=== PATIENT | female | born 2000 | race Caucasian/White ===

== ENCOUNTER 2018-06-21 18:09 | Outpatient (CLI) | payer MEDICAID ==
[2018-06-21] MEDS: TERBUTALINE 1 MG/ML INJ SC ×2 (19:55→22:00)
[2018-06-21 20:42] LABS: ADD UMIC NO; UR ASCORBIC ACID NEGATIVE (NEGATIVE); UR BILIRUBIN (Dip) NEGATIVE (NEGATIVE); UR BLOOD (Dip) NEGATIVE (NEGATIVE); UR CLARITY CLEAR (CLEAR); UR COLOR STRAW (YELLOW); UR GLUCOSE (Dip) NEGATIVE (NEGATIVE); UR KETONES (Dip) NEGATIVE (NEGATIVE); UR LEUKOCYTE ESTERASE (Dip) NEGATIVE Leu/ul (NEGATIVE); UR NITRITE (Dip) NEGATIVE (NEGATIVE); UR SPECIFIC GRAVITY (Dip) 1.003 (1.003-1.030); UR TOTAL PROTEIN (Dip) NEGATIVE (NEGATIVE); UR UROBILINOGEN (Dip) NEGATIVE (NEGATIVE)
== END 2018-06-22 00:08 | disposition home or self-care (01) ==
LOC: OBT 18:09 → L-D 18:10
DX: O36.8120 Decreased fetal movements, second trimester, not applicable or unspecified (principal); O47.03 False labor before 37 completed weeks of gestation, third trimester; Z3A.27 27 weeks gestation of pregnancy
CPT/HCPCS: 76818; 81003

== ENCOUNTER 2018-09-21 09:02 | Inpatient (IN) | payer MEDICAID ==
[2018-09-21] MEDS: LACTATED RINGER'S 1,000 ML IV ×2 (09:17→17:34)
[2018-09-21] MEDS ORDERED: IBUPROFEN 600 MG TAB PO (09:30)
[2018-09-21] MEDS ORDERED: MISOPROSTOL 200 MCG TAB PR (09:30)
[2018-09-21] MEDS ORDERED: CARBOPROST 250 MCG INJ IM (09:30)
[2018-09-21] MEDS ORDERED: OXYTOCIN 30 UNITS/LR 500 ML IV ×2 (09:30)
[2018-09-21 10:08] LABS: ADD MAN DIFF? NO
[2018-09-21 10:11] LABS: BASOPHILS % 0.4 % (0.0-2.0); EOSINOPHILS % 0.2 % (0.0-7.0); HEMATOCRIT 35.7 % (37.0-47.0); HEMOGLOBIN 11.8 g/dl (12.0-16.0); LYMPHOCYTES # 2.2 10^3/ul (0.8-2.9); LYMPHOCYTES % 27.6 % (18.0-55.0); MEAN CORPUSCULAR HEMOGLOBIN 30.8 pg (29.0-33.0); MEAN CORPUSCULAR HGB CONC 33.1 g/dl (32.0-37.0); MEAN CORPUSCULAR VOLUME 93.2 fl (72.0-104.0); MEAN PLATELET VOLUME 10.6 fl (7.4-10.4); MONOCYTE # 0.7 10^3/ul (0.3-0.9); MONOCYTES % 8.5 % (0.0-13.0); NEUTROPHILS % 62.2 % (30.0-74.0); PLATELET COUNT 232 10^3/UL (140-415); RED BLOOD COUNT 3.83 10^6/ul (4.20-5.40)
[2018-09-21 10:31] LABS: INR 0.91; PROTIME 12.4 Sec (11.9-14.9)
[2018-09-21] MEDS: MISOPROSTOL 50 MCG CAPSULE PO ×2 (10:47→14:51)
[2018-09-21] MEDS: BUTORPHANOL 2 MG INJ IV (19:43)
[2018-09-21] MEDS: OXYTOCIN 30 UNITS/LR 500 ML IV ×2 (21:54→22:03)
[2018-09-21] MEDS: LIDOCAINE 1% (MPF) 30 ML INJ INJ (22:03)
[2018-09-21] MEDS: METHYLERGONOVINE 0.2 MG INJ IM (22:10)
[2018-09-21 22:31] LABS: RAPID PLASMA REAGIN NONREACTIVE (NR)
[2018-09-22] MEDS: DEXTROSE 5%-LR 1,000 ML IV (00:13)
[2018-09-22] MEDS: LACTATED RINGER'S 1,000 ML IV* (00:13)
[2018-09-22] MEDS ORDERED: CARBOPROST 250 MCG INJ IM (00:30)
[2018-09-22] MEDS ORDERED: ACETAMINOPHEN 325 MG TAB PO (00:30)
[2018-09-22] MEDS ORDERED: ZOLPIDEM 5 MG TAB PO (00:30)
[2018-09-22] MEDS ORDERED: ONDANSETRON 4 MG INJ IV (00:30)
[2018-09-22] MEDS ORDERED: DIPHENHYDRAMINE 50 MG INJ IV (00:30)
[2018-09-22] MEDS ORDERED: OXYTOCIN 30 UNITS/LR 500 ML IV (00:30)
[2018-09-22] MEDS ORDERED: METHYLERGONOVINE 0.2 MG INJ IM (00:30)
[2018-09-22] MEDS ORDERED: LANOLIN HPA 1 PKT TOP (00:30)
[2018-09-22] MEDS ORDERED: MISOPROSTOL 200 MCG TAB PR (00:30)
[2018-09-22] MEDS ORDERED: DIBUCAINE 1% 30 GM OINT TOP (00:30)
[2018-09-22] MEDS: WITCH HAZEL/GLYCERIN PAD PR (03:12)
[2018-09-22] MEDS: BENZOCAINE 20% 56 ML SPRAY TOP (03:12)
[2018-09-22] MEDS: OXYCODONE/ASPIRIN (4.88/325) TAB PO ×3 (04:24→13:39)
[2018-09-22] MEDS: IBUPROFEN 600 MG TAB PO ×3 (06:00→17:31)
[2018-09-22] MEDS: MAGNESIUM HYDROXIDE 30ML CUP PO (22:21)
[2018-09-22] MEDS: SENNA/DOCUSATE NA (8.6MG/50MG) TAB PO (22:21)
[2018-09-23] MEDS: IBUPROFEN 600 MG TAB PO ×3 (00:24→12:10)
[2018-09-23 08:28] LABS: ADD MAN DIFF? NO
[2018-09-23 08:39] LABS: WHITE BLOOD COUNT 10.2 10^3/ul (4.8-10.8)
[2018-09-23 08:39] LABS: BASOPHILS % 0.3 % (0.0-2.0); EOSINOPHILS # 0.1 10^3/ul (0.0-0.5); EOSINOPHILS % 0.6 % (0.0-7.0); HEMATOCRIT 33.4 % (37.0-47.0); HEMOGLOBIN 10.9 g/dl (12.0-16.0); LYMPHOCYTES % 29.5 % (18.0-55.0); MEAN CORPUSCULAR HEMOGLOBIN 31.1 pg (29.0-33.0); MEAN CORPUSCULAR HGB CONC 32.6 g/dl (32.0-37.0); MEAN CORPUSCULAR VOLUME 95.2 fl (72.0-104.0); MEAN PLATELET VOLUME 10.3 fl (7.4-10.4); MONOCYTE # 0.9 10^3/ul (0.3-0.9); MONOCYTES % 8.7 % (0.0-13.0); NEUTROPHIL # 6.1 10^3/ul (1.6-7.5); NEUTROPHILS % 59.5 % (30.0-74.0); PLATELET COUNT 213 10^3/UL (140-415); RED BLOOD COUNT 3.51 10^6/ul (4.20-5.40); RED CELL DISTRIBUTION WIDTH 13.9 % (11.5-14.5)
[2018-09-23] MEDS: SENNA/DOCUSATE NA (8.6MG/50MG) TAB PO (09:05)
[2018-09-23] MEDS: MAGNESIUM HYDROXIDE 30ML CUP PO (09:05)
[2018-09-23] MEDS: DIPHTH/TET/ACEL PERTUSS (ADULT) 0.5 ML VIAL IM* (15:08)
[2018-09-24] MEDS ORDERED: MEASLES,MUMPS,RUBELLA VACCINE INJ SC* (09:00)
== END 2018-09-23 15:25 | disposition home or self-care (01) | DRG 807 ==
LOC: L-D 09:02 → PP1 09-22 00:23 → L-D 09:04
PROVIDERS: Obstetrics & Gynecology
PROC: 10D07Z6 Extraction of Products of Conception, Vacuum, Via Natural or Artificial Opening (ICD-10-PCS; principal; 2018-09-21 08:00)
PROC: 0W8NXZZ Division of Female Perineum, External Approach (ICD-10-PCS; 2018-09-21 08:00)
DX: O48.0 Post-term pregnancy (principal); Z37.0 Single live birth; Z3A.40 40 weeks gestation of pregnancy; O76 Abnormality in fetal heart rate and rhythm complicating labor and delivery
CPT/HCPCS: 76815; 85025; 85610; 85730; 86592; 86850; 86900; 86901; 90715; 99464

== ENCOUNTER 2018-09-25 17:14 | Emergency (ER) | payer MEDICAID ==
[2018-09-25] MEDS: morphine 4 MG/ML VIAL IM (20:07)
[2018-09-25] MEDS: ONDANSETRON (ODT) 4 MG TAB ODT (20:07)
[2018-09-25] MEDS: ONDANSETRON 4 MG INJ IV (20:46)
[2018-09-25 20:47] LABS: ADD MAN DIFF? NO
[2018-09-25] MEDS: FENTAnyl 50 MCG/ML VIAL IV (20:47)
[2018-09-25 20:48] LABS: BASOPHILS % 0.2 % (0.0-2.0); EOSINOPHILS # 0.1 10^3/ul (0.0-0.5); EOSINOPHILS % 1.2 % (0.0-7.0); HEMATOCRIT 36.9 % (37.0-47.0); LYMPHOCYTES # 2.2 10^3/ul (0.8-2.9); MEAN CORPUSCULAR HEMOGLOBIN 30.9 pg (29.0-33.0); MEAN CORPUSCULAR HGB CONC 32.5 g/dl (32.0-37.0); MEAN CORPUSCULAR VOLUME 95.1 fl (72.0-104.0); MEAN PLATELET VOLUME 9.5 fl (7.4-10.4); MONOCYTE # 0.5 10^3/ul (0.3-0.9); MONOCYTES % 5.9 % (0.0-13.0); NEUTROPHIL # 6.2 10^3/ul (1.6-7.5); NEUTROPHILS % 67.9 % (30.0-74.0); PLATELET COUNT 308 10^3/UL (140-415); RED BLOOD COUNT 3.88 10^6/ul (4.20-5.40); RED CELL DISTRIBUTION WIDTH 13.8 % (11.5-14.5)
[2018-09-25 20:48] LABS: WHITE BLOOD COUNT 9.2 10^3/ul (4.8-10.8)
[2018-09-25 21:20] LABS: ANION GAP 8 (5-13); Estimated GFR > 60 mL/min (>60)
[2018-09-25 21:24] LABS: ALANINE AMINOTRANSFERASE 84 IU/L (13-69); ALBUMIN 3.8 g/dl (3.3-4.9); ALBUMIN/GLOBULIN RATIO 1.05; ALKALINE PHOSPHATASE 197 IU/L (42-121); ASPARTATE AMINO TRANSFERASE 79 IU/L (15-46); BILIRUBIN,INDIRECT 0.1 mg/dl (0-1.1); BILIRUBIN,TOTAL 0.1 mg/dl (0.2-1.3); BLOOD UREA NITROGEN 13 mg/dl (7-20); CALCIUM 9.3 mg/dl (8.4-10.2); CARBON DIOXIDE 23 mmol/L (21-31); CHLORIDE 113 mmol/L (97-110); CREATININE 0.59 mg/dl (0.44-1.00); GLUCOSE 94 mg/dl (70-220); POTASSIUM 4.1 mmol/L (3.5-5.1); SODIUM 144 mmol/L (135-144); TOTAL PROTEIN 7.4 g/dl (6.1-8.1)
== END 2018-09-25 21:36 | disposition home or self-care (01) ==
LOC: E/R 17:14
DX: K62.3 Rectal prolapse (principal)
CPT/HCPCS: 36415; 80053; 83605; 85025; 96374; 96375; 99284-25